=== PATIENT | male | born 1950 | race Two or more races ===

== ENCOUNTER 2020-10-01 09:00 | Outpatient (CLI) | payer OTHER | END 2020-10-01 09:37 | disposition home or self-care (01) | LOC: TOM 09:00 | PROVIDERS: ATTEND Internal Medicine Gastroenterology | DX: Z12.11 Encounter for screening for malignant neoplasm of colon (principal); Q61.01 Congenital single renal cyst; K80.80 Other cholelithiasis without obstruction; R19.5 Other fecal abnormalities; Z79.01 Long term (current) use of anticoagulants ==

== ENCOUNTER 2023-01-30 08:26 | Outpatient (CLI) | payer OTHER | END 2023-01-30 08:28 | disposition home or self-care (01) | LOC: TOM 08:26 | PROVIDERS: ATTEND Internal Medicine Gastroenterology | DX: R19.5 Other fecal abnormalities (principal); Z79.01 Long term (current) use of anticoagulants ==